=== PATIENT | male | born 1975 | race Caucasian/White ===

== ENCOUNTER 2019-05-15 18:06 | Emergency (ER) | payer OTHER ==
[~2019-05-15] VITALS: Ht 172.7 cm; Wt 89.8 kg
[2019-05-15] MEDS ORDERED: AZILECT1 MG (18:24)
[2019-05-15] MEDS ORDERED: [UNRECOGNIZED DRUG - OTHER] (18:25)
[2019-05-15] MEDS ORDERED: MIRAPEX ER2.25 MG (18:26)
[2019-05-15] MEDS ORDERED: VYTORIN 10-401 EACH (18:26)
== END 2019-05-15 20:26 | disposition home or self-care (01) ==
LOC: ER 18:06
DX: J06.9 Acute upper respiratory infection, unspecified (principal); R06.02 Shortness of breath